=== PATIENT | male | born 1955 | race Caucasian/White ===

== ENCOUNTER → 2017-01-19 | Outpatient (CLI) | payer BC ==
[~2017-01-19] MED LIST: ANDRODERM2.5 MG/24 TD; ARTIFICIAL TEAR15 M7 OP; ASPIRIN 32325 MG/TAB PO; B-12 500 MCG PO; BACTRIM DS 8001 TAB PO; BENICAR 20MG TA20 MG PO; BENICAR5 MG PO; CEPHALEXIN500 M1 PO; EPA/GLA1 SGL PO; FERROUS SU325 MG/TAB PO; FOLIC ACID 40400 MCG PO; HCTZ 25MG TAB25 MG PO; MAGNESIUM200 MG PO; MASON NATURAL1200 MG PO; MULTI VITAMINS1 TAB PO; NORCO 325 MG-51 TAB PO; SINGULAIR 110 MG/TAB PO; SINGULAIR10 MG PO; TEARS NATURALE15 M1 OP; VITAMIN B1225 MCG; VITAMIN C BUFF500 MG PO; ZANTAC 150150 MG PO; ZANTAC 150MG T150 MG PO
== END ==
LOC: COL.CARD 11:16
DX: I10 Essential (primary) hypertension (principal)

== ENCOUNTER → 2017-12-03 | Outpatient (CLI) | payer BC ==
[2017-12-03 12:13] LABS: HIV 1/2 Antibodies Non-Reactive; HIV-1p24 Antigen Non-Reactive
== END ==
LOC: COL.LAB 10:58
PROVIDERS: Orthopaedic Surgery
DX: Z01.812 Encounter for preprocedural laboratory examination (principal); M17.11 Unilateral primary osteoarthritis, right knee